=== PATIENT | female | born 1985 | race Caucasian/White ===

== ENCOUNTER → 2019-06-15 | Outpatient (CLI) | payer BC ==
--- NOTE | 2019-06-15 08:35 | US ---
EXAMINATION TYPE: US abdomen complete DATE OF EXAM: 06/15/2019 COMPARISON: NONE CLINICAL HISTORY: R 19.7 diarrhea indigestion. Symptoms x years; takes medication for Htn, elevated triglycerides, thyroid, Prilosec EXAM MEASUREMENTS: Liver Length: 20.4 cm Gallbladder Wall: 0.2 cm CBD: 0.3 cm Spleen: 12.5 cm Right Kidney: 12.8 x 5.9 x 5.0 cm Left Kidney: 12.0 x 5.9 x 5.6 cm Pancreas: homogeneous Liver: hyperechoic to right renal cortex suggests fatty liver , enlarged Gallbladder: wnl Evidence for sonographic Grimaldo's sign: no CBD: wnl Spleen: wnl Right Kidney: No hydronephrosis or masses seen Left Kidney: Hyperechoic focus without distal shadowing, possible 4 mm nonobstructing calculus. Upper IVC: wnl Abd Aorta: wnl IMPRESSION: 1. Sonographic findings most commonly related to hepatic steatosis. Correlate with liver function garland ts. 2. Possible 4 mm nonobstructing left renal calculus.
== END | disposition home or self-care (01) ==
LOC: RADUSWWP 07:08
PROVIDERS: ATTEND Surgery
DX: K30 Functional dyspepsia (principal); R19.7 Diarrhea, unspecified
CPT/HCPCS: 76700

== ENCOUNTER 2019-07-04 15:22 | Emergency (ER) | payer BC, OTHER ==
[2019-07-04 15:44] VITALS: BP 150/94; PULSE 83; RESP 20; TEMP 97.7
[2019-07-04] MEDS ORDERED: KETOROLAC 60 MG/2 ML VIAL IM STA (16:06)
[2019-07-04] MEDS ORDERED: CYCLOBENZAPRINE 10MG STARTER 3 TAB BTL PO STA (16:06)
--- NOTE | 2019-07-04 16:07 | ED ---
Fall HPI - General Chief Complaint: Fall Stated Complaint: IHS/fall Time Seen by Provider: 07/04/19 15:46 Source: patient Mode of arrival: ambulatory - History of Present Illness Initial Comments: 33-year-old female presents today for follow-up. Patient states that just prior to arrival she was at school when she tripped over a child falling onto her right side she states she fell in a stepwise pattern her knees and her elbow and then she hit the right side of her head. Patient denies any scalp hematomas bumps pain to palpation of the scalp. Patient denies loss of consciousness or blood thinners. Patient states she did have a slight headache this morning she states she is unsure if the headache she has right now is due to the one that she had previously with this is new. Patient denies any visual changes speech changes because of the upper or lower extremity sensation deficits or changes in gait. Patient denies any dizziness. Denied any immediate neck pain after the fall. Patient states she does feel sore all over. Patient denies any lumbar or thoracic pain. Patient denies any chest pain shortness of breath injury to the shoulders elbows wrists hips knees and ankles bilaterally. Patient denies any lacerations or abrasions. Upon arrival patient's Bisi Fisher she appears well there is no signs of acute distress. Patient was sent because this happened at work. - Related Data Home Medications Medication Instructions Recorded Confirmed Etonogestrel/Ethinyl Estradiol 1 ring VAGINAL DIRECTED 06/15/16 06/15/16 [Nuvaring Vaginal Ring] Fenofibrate [Lofibra] 160 mg PO DAILY 06/15/16 06/15/16 Levothyroxine Sodium [Synthroid] 50 mcg PO DAILY 06/15/16 06/15/16 Sulfamethox-Tmp 800-160Mg [Bactrim 1 tab PO Q12HR 06/15/16 06/15/16 DS 800-160 mg] Previous Rx's Medication Instructions Recorded Cyclobenzaprine [Flexeril] 10 mg PO TID PRN 7 Days #21 tab 07/04/19 Allergies Allergy/AdvReac Type Severity Reaction Status Date / Time Penicillins Allergy Rash/Hives Verified 07/04/19 15:45 sulfamethoxazole Allergy Rash/Hives Verified 06/15/19 11:17 [From Bactrim] trimethoprim [From Bactrim] Allergy Rash/Hives Verified 06/15/19 11:17 Review of Systems ROS Statement: Those systems with pertinent positive or pertinent negative responses have been documented in the HPI. ROS Other: All systems not noted in ROS Statement are negative. Past Medical History Past Medical History: Asthma History of Any Multi-Drug Resistant Organisms: None Reported Past Surgical History: No Surgical Hx Reported Past Psychological History: No Psychological Hx Reported Smoking Status: Never smoker Past Alcohol Use History: None Reported Past Drug Use History: None Reported General Exam - General Exam Comments Initial Comments: General: The patient is awake and alert, in no distress, and does not appear acutely ill. Eye: +3 mm pupils are equal, round and reactive to light, extra-ocular movements are intact. No APD. No nystagmus. There is normal conjunctiva bilaterally. No signs of icterus. Ears, nose, mouth and throat: There are moist mucous membranes and no oral lesions. No tenderness to palpation of the scalp there is no hematomas contusions abrasions or lacerations noted no raccoon or Livingston sign. Neck: The neck is supple, there is no tenderness or JVD. Patient has no midline tenderness to palpation of the cervical spine. Patient is very mild left-sided paraspinal tenderness patient is able to fully range without difficulty or limitation of the cervical spine. Patient states it feels tight the nose and the skin pain Cardiovascular: There is a regular rate and rhythm. No murmur, rub or gallop is appreciated. Respiratory: Lungs are clear to auscultation, respirations are non-labored, breath sounds are equal. No wheezes, stridor, rales, or rhonchi. Gastrointestinal: Soft, non-distended, non-tender abdomen without masses or organomegaly noted. There is no rebound or guarding present. Musculoskeletal: Normal ROM, no tenderness. Strength 5/5. Sensation intact. Pulses equal bilaterally 2+. Neurological: A&O x 3. CN II-XII intact, memory intact to immediately, inter mediate and [facility] recall. Able to follow simple verbal. Able to name a common object. High quality, labial (pa) and lingual (la) speech. Low quality posterior pharynx/larynx (ga) voice sounds. Able to express general knowledge. No hemineglect or inattention noted. Finger agnosia (-) and spatially oriented.Light touch sensation present over the face, chest, abdomen, back, UE bilaterally, and LE bilaterally. No visible bulk atrophy, hypertrophy, fasciculations, or myoclonus of the UE or LE b/l. Full PROM in UE and LE b/l. Bilateral muscle strength 5/5 for the following muscles: deltoid, biceps, triceps, brachioradialis, wrist extensors/flexor, hip flexor, hip abductors/adductors, hamstrings, quadriceps, feet dorsiflexors/plantar flexors. Finger to nose, finger to the examiners finger, and heel to blair coordinated and accurate b/l. Coordinated and even motions. Gait is coordinated and even in stride with tandem. Skin: Skin is warm and dry and no rashes or lesions are noted. Psychiatric: Cooperative, appropriate mood & affect, normal judgment. Limitations: no limitations Course Vital Signs 07/04/19 07/04/19 15:39 17:28 Temperature 97.7 F 97.7 F Pulse Rate 83 83 Respiratory 20 20 Rate Blood Pressure 150/94 150/94 O2 Sat by Pulse 98 98 Oximetry Medical Decision Making - Medical Decision Making 33yo female presents today for chief complaint of fall just prior to arrival. Patient did hit head, there was no loss of consciousness foll was from standing. Patient is not anticoagulation therapy patient has no scalp hematomas nor history of high injury impact. Patient had no immediate neck pain, no midline tenderness on exam, no complaints of pain ranging down the arms no paresthesias or weakness of the upper extremities. Patient is able to fully range of the cervical spine without limitations or difficulty. Patient has no focal neurological deficits. She complains of slight headache. Patient states this resolved with Toradol. Patient was provided Flexeril for muscle aches. I rechecked the patient is awake Tylenol and ibuprofen at home and follow-up with primary care provider and full concussion protocols. Return parameters were discussed at length as well as the importance the primary care follow-up was discussed. Patient provided work note for tomorrow and was discharged. discussed the case with Dr. Newton who is agreeable to Plan and discharged Patient was noted to have elevated blood pressure she denied any chest pain shortness of breath decreased urine output ripping tearing back pain severe headache and dizziness nausea or vomiting. Patient states that she is taking her blood pressure home and keeping a log she currently was started on a low- dose of lisinopril she states she continues to have elevated readings at home. I discussed the importance of following up with primary care provider to discuss that she continues to have elevated blood pressure readings patient verbalized understanding Disposition Clinical Impression: Fall, Headache, Concussion, Neck strain Disposition: HOME SELF-CARE Condition: Good Instructions (If sedation given, give patient instructions): Concussion (ED) Additional Instructions: Please use medication as discussed. Please follow-up with family doctor in the next 2 days, no exertional activity, no activities with increased risk of head injury, until PCP clearance- follow concussion protocols as discussed. Please return to emergency room if the symptoms increase or worsen or for any other concerns. Prescriptions: Cyclobenzaprine [Flexeril] 10 mg PO TID PRN 7 Days #21 tab PRN Reason: Muscle Spasm Is patient prescribed a controlled substance at d/c from ED?: No Referrals: Petrona Wylie MD [Primary Care Provider] - 1-2 days Time of Disposition: 16:47
== END 2019-07-04 17:28 | disposition home or self-care (01) ==
LOC: EC 15:22
DX: S06.0X0A Concussion without loss of consciousness, initial encounter (principal); S16.1XXA Strain of muscle, fascia and tendon at neck level, initial encounter; R03.0 Elevated blood-pressure reading, without diagnosis of hypertension; R26.9 Unspecified abnormalities of gait and mobility; Z79.890 Hormone replacement therapy; Z79.899 Other long term (current) drug therapy; Z88.0 Allergy status to penicillin; Z88.1 Allergy status to other antibiotic agents; Z88.2 Allergy status to sulfonamides; W01.10XA Fall on same level from slipping, tripping and stumbling with subsequent striking against unspecified object, initial encounter; Y92.219 Unspecified school as the place of occurrence of the external cause; Y99.0 Civilian activity done for income or pay
CPT/HCPCS: 96372; 99283; J1885

== ENCOUNTER → 2020-01-31 | Outpatient (CLI) | payer BC ==
--- NOTE | 2020-01-31 22:27 | CONS ---
CONSULTATION DATE OF SERVICE: Sleep apnea. 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 She carries a strong family history of mother, father and aunts, all of them have sleep apnea. She has gained considerable amount of weight in order of 90 pounds over the past 10 years and currently she is having issues with hypersomnia and sleepiness during the day. She snores. She wakes up frequently in the middle of the night. She cannot sleep on her back. She quits breathing. She has nocturia and she occasionally grinds her teeth and she is excessively fatigue and sleepy during the day. She goes to bed between 10 and 11 p.m. and wakes up at 6:30 a.m. in the morning. Feels tired all the time. Loveland score is at 8. No sleep paralysis. No hallucinations. No cataplexy. No intake of any caffeinated beverages. Does not drink alcohol in excess. She is a nose breather. She has some oral dryness when she wakes up in the morning. No nasal congestion or postnasal drainage. No nighttime chest pain or shortness of breath. No sleepwalking or sleep talking. No restlessness in lower extremities. No anxiety or depression. PAST MEDICAL HISTORY: Obesity, hypothyroidism, hyperlipidemia and hypertension. SURGICAL HISTORY: Negative. DRUG ALLERGIES: SULFA AND PENICILLINS. OUTPATIENT MEDICATIONS INCLUDE: Levothyroxine, fenofibrate, lisinopril, and metformin. SOCIAL HISTORY: Nonsmoker. No history of alcoholism. No history of IV drugs. FAMILY HISTORY: Positive for sleep apnea including mother, father and aunt. REVIEW OF SYSTEMS: Fourteen-point review of system was done. Positive findings are mentioned in history of present illness. PHYSICAL EXAMINATION: BP is 138/85, pulse 90, respirations 16, temperature 97.7, weight is 270, and height is 5 feet 5 inches. Loveland score is at 8. Neck size is 18 inches and saturation 97% on room air. General appearance: Calm, comfortable. Head is atraumatic, normocephalic. NECK: Supple. Mallampati class 4. Slight overbite. No goiter or neck masses. LUNGS: Clear to auscultation. HEART: Heart sounds are regular rate and rhythm. Normal S1, S2. No S3, S4. No murmurs. ABDOMEN: Soft, nontender. No organomegaly. EXTREMITIES: No edema. No cyanosis or clubbing. NEUROLOGIC: Awake and alert. There is no focal neurological deficits. IMPRESSION: 1. Hypersomnia, chronic with Loveland score of 8. 2. Loud snoring. 3. Obesity with a body weight of 270. 4. Hypothyroidism. 5. Hyperlipidemia. 6. Hypertension. PLAN: This patient carries a high clinical suspicion of obstructive sleep apnea. She is quite symptomatic and she is excessively somnolent and sleepy. Encourage weight loss. Implement good sleep hygiene measures. Proceed with a home sleep study to assess the patient for sleep apnea and treat accordingly. Continue treating her comorbidities which include hypothyroidism, hypertension, hyperlipidemia. We will continue to follow. MMODL / IJN: [id number] /
== END | disposition home or self-care (01) ==
LOC: SLEEP 16:01
PROVIDERS: ATTEND Internal Medicine Critical Care Medicine
DX: G47.10 Hypersomnia, unspecified (principal); E66.9 Obesity, unspecified; E03.9 Hypothyroidism, unspecified; E78.5 Hyperlipidemia, unspecified; I10 Essential (primary) hypertension; Z88.0 Allergy status to penicillin; Z88.2 Allergy status to sulfonamides
CPT/HCPCS: 99211

== ENCOUNTER → 2020-03-20 | Outpatient (CLI) | payer BC | END | disposition home or self-care (01) | LOC: LABWHC1 08:10 | PROVIDERS: ATTEND Anesthesiology | DX: Z20.828 Contact with and (suspected) exposure to other viral communicable diseases (principal) | CPT/HCPCS: U0003; C9803 ==

== ENCOUNTER → 2020-03-27 | Outpatient (CLI) | payer BC ==
--- NOTE | 2020-03-28 07:39 | MM ---
Reason for exam: screening (asymptomatic). Baseline mammogram. History: Family history of breast cancer in maternal aunt. Taking hormonal contraceptives for 15 years. Physical Findings: Nurse did not find any significant physical abnormalities on exam. MG 3D Screening Mammo W/Cad Bilateral CC and MLO view(s) were taken. There are scattered fibroglandular densities. There is no discrete abnormality. These results were verbally communicated with the patient and result sheet given to the patient on 03/27/20. ASSESSMENT: Negative, BI-RAD 1 RECOMMENDATION: Routine screening mammogram of both breasts at age 38. (unless clinical indication to start sooner)
== END | disposition home or self-care (01) ==
LOC: RADMAMWWP 14:33
PROVIDERS: ATTEND Obstetrics & Gynecology
DX: Z12.31 Encounter for screening mammogram for malignant neoplasm of breast (principal)
CPT/HCPCS: 77063; 77067

== ENCOUNTER → 2020-06-05 | Outpatient (CLI) | payer BC ==
--- NOTE | 2020-06-05 18:57 | PN ---
PROGRESS NOTE This is a 34-year-old female patient with a diagnosis of moderate to severe obstructive sleep apnea with an AHI of 28, and the patient is coming in for a compliancy check. She is currently on APAP, minimum pressure of 5, maximum pressure of 15. She reports some limited benefit. At times she is not seeing any benefit at all. However, based on the compliance data, she has been averaging around 6.9 hours of CPAP use per night and she is utilizing her CPAP more than 4 hours more than 90% of the time. Her average pressure delivered by the machine is 14.9 cm of water. Her leak is at 37 L/minute and her AHI is down to 0.8, indicating adequate use and adequate compliancy. Her weight has been stable. She is trying to lose weight. No major nighttime chest pain, shortness of breath, heartburn or palpitation. Her current Titus score is 2. PHYSICAL EXAMINATION: BP is 138/83, pulse 85, respirations 12, temperature is 98.2. Saturation is 95% on room air. Weight is 276. GENERAL APPEARANCE: Obese, calm, comfortable. HEAD: Atraumatic, normocephalic. NECK: Supple. No JVD. No goiter or neck masses. LUNGS: Clear to auscultation. HEART: Heart sounds are regular rate and rhythm. Normal S1, S2. No S3, S4. No murmurs. ABDOMEN: Soft, nontender. No organomegaly. EXTREMITIES: No edema. No cyanosis or clubbing. NEUROLOGIC: Awake and alert. There is no focal neurological deficit. PSYCHIATRIC: Negative for anxiety or depression. IMPRESSION: 1. Symptomatic obstructive sleep apnea, AHI of 28, currently on APAP. 2. Hypersomnia. Titus score is down to 2. 3. Obesity. Weight is stable with a BMI of 44.9. PLAN: 1. Continue CPAP therapy at the same level of pressure. 2. On today's evaluation, I offered two alternative masks, a DreamWear [id number], small size, and an AirFit N20 nose mask. Both of these masks will be tried out and feedback will be given to me at a later stage. Encourage weight loss. Implement good sleep hygiene measures. Continue CPAP therapy at same level of pressure. See me back in a year's time. MMODL / IJN: [id number] /
== END | disposition home or self-care (01) ==
LOC: SLEEP 15:48
PROVIDERS: ATTEND Internal Medicine Critical Care Medicine
DX: G47.33 Obstructive sleep apnea (adult) (pediatric) (principal); G47.10 Hypersomnia, unspecified; E66.9 Obesity, unspecified; Z68.41 Body mass index [BMI] 40.0-44.9, adult

== ENCOUNTER → 2020-12-20 | Outpatient (CLI) | payer BC ==
[2020-12-20 22:26] LABS: Hemoglobin A1C 5.3 % (4.0-6.0)
== END | disposition home or self-care (01) ==
LOC: LABWHC1 13:41
PROVIDERS: ATTEND Physician Assistant Medical
DX: R73.03 Prediabetes (principal)
CPT/HCPCS: 36415; 83036

== ENCOUNTER → 2021-04-12 | Outpatient (CLI) | payer BC ==
--- NOTE | 2021-04-16 12:05 | MM ---
Reason for exam: screening (asymptomatic). Last mammogram was performed 1 year and 1 month ago. History: Family history of breast cancer in maternal aunt. Taking hormonal contraceptives for 15 years. Physical Findings: A clinical breast exam by your physician is recommended on an annual basis and results should be correlated with mammographic findings. MG 3D Screening Mammo W/Cad Bilateral CC and MLO view(s) were taken. Prior study comparison: March 27, 2020, bilateral MG 3d screening mammo w/cad. There are scattered fibroglandular densities. No significant changes when compared with prior studies. ASSESSMENT: Negative, BI-RAD 1 RECOMMENDATION: Routine screening mammogram of both breasts at age 38.
== END | disposition home or self-care (01) ==
LOC: RADMAMWWP 16:08
PROVIDERS: ATTEND Family Medicine
DX: Z12.31 Encounter for screening mammogram for malignant neoplasm of breast (principal); Z80.3 Family history of malignant neoplasm of breast
CPT/HCPCS: 77063; 77067

== ENCOUNTER → 2021-06-11 | Outpatient (CLI) | payer BC ==
[2021-06-11 18:32] LABS: Basophils # (A) 0.03 X 10*3/uL (0.00-0.10); Basophils % (A) 0.6 %; Eosinophils # (A) 0.18 X 10*3/uL (0.04-0.35); Eosinophils % (A) 3.5 %; HCT 34.4 % (37.2-46.3); HGB 11.1 g/dL (12.0-15.0); Immature Grans, Automated 0.4 %; Lymphocytes # (A) 1.72 X 10*3/uL (0.90-5.00); Lymphocytes % (A) 33.8 %; MCH 27.2 pg (27.0-32.0); MCHC 32.3 g/dL (32.0-37.0); MCV 84.3 fL (80.0-97.0); Mean Platelet Volume 10.8 fL (9.5-12.2); Monocytes # (A) 0.42 X 10*3/uL (0.20-1.00); Monocytes % (A) 8.3 %; NRBC Per 100 WBC 0 /100 WBCS (0.0-0.0); Neutrophils # (A) 2.72 X 10*3/uL (1.80-7.70); Neutrophils % (A) 53.4 %; Platelet Count 319 X 10*3/uL (140-440); RBC 4.08 X 10*6/uL (4.10-5.20); RDW 13.2 % (11.5-14.5); WBC 5.09 X 10*3/uL (4.50-10.00)
[2021-06-11 20:26] LABS: ALT 15 U/L (8-44); AST 18 U/L (13-35); African American GFR (CKD) 136.4 (60.0-200.0); Albumin 4.2 g/dL (3.8-4.9); Albumin/Globulin Ratio 1.69 (1.60-3.17); Alkaline Phosphatase 45 U/L (41-126); BUN/Creat Ratio 20.65 Ratio (12.00-20.00); Calcium 9.1 mg/dL (8.7-10.3); Carbon Dioxide 18.8 mmol/L (20.0-27.5); Chloride 108 mmol/L (96-109); Chol/HDL Ratio 3.95 Ratio; Globulin 2.5 g/dL (1.6-3.3); Glucose 86 mg/dL (70-110); LDL Cholesterol,Calculated 29.8 mg/dL (0.0-131.0); Non-African American GFR(CKD) 117.7 (60.0-200.0); Potassium 3.8 mmol/L (3.5-5.5); Sodium 142 mmol/L (135-145); Total Protein 6.6 g/dL (6.2-8.2)
== END | disposition home or self-care (01) ==
LOC: LABWHC1 11:38
PROVIDERS: ATTEND Family Medicine
DX: E03.9 Hypothyroidism, unspecified (principal); I10 Essential (primary) hypertension; E78.1 Pure hyperglyceridemia
CPT/HCPCS: 36415; 80053; 80061; 82043; 82570; 83036; 84443; 85025

== ENCOUNTER → 2022-12-19 | Outpatient (CLI) | payer BC ==
--- NOTE | 2022-12-22 20:31 | MM ---
Reason for Exam: Screening (asymptomatic). Last mammogram was performed 1 year(s) and 8 month(s) ago. Patient History: Menarche at age 11. Patient has no children. Currently using Hormonal Contraceptives, for 15 years. Maternal aunt had breast cancer, age 50. Mother had breast cancer, left, age 61. Mother had breast cancer, right, age 61. Mother tested for BRCA1 outcome was negative. Mother tested for BRCA2 outcome was negative. Last menstrual period: 12/04/2022 Risk Values: Pati 5 year model risk: 1.0%. NCI Lifetime model risk: 18.9%. Prior Study Comparison: 03/27/2020 Bilateral Screening Mammogram, [facility]. 04/12/2021 Bilateral Screening Mammogram, [facility]. Tissue Density: There are scattered fibroglandular densities. Findings: Analyzed By CAD. There is no suspicious group of microcalcifications or new suspicious mass in either breast. Overall Assessment: Negative, BI-RAD 1 Management: Screening Mammogram of both breasts in 1 year. . Patient should continue monthly self-breast exams. A clinical breast exam by your physician is recommended on an annual basis. This exam should not preclude additional follow-up of suspicious palpable abnormalities. Note on Pati scores and lifetime risk: 1. A Pati score greater than 3% is considered moderate risk. If this is the case, consider specialist referral to assess eligibility for a risk reducing agent. 2. If overall lifetime risk for the development of breast cancer is 20% or higher, the patient may qualify for future screening with alternating mammogram and breast MRI. Electronically signed and approved by: Art Hdez M.D. Radiologist
== END | disposition home or self-care (01) ==
LOC: RADMAMWWP 15:22
PROVIDERS: ATTEND Family Medicine
DX: Z12.31 Encounter for screening mammogram for malignant neoplasm of breast (principal); Z80.3 Family history of malignant neoplasm of breast
CPT/HCPCS: 77063; 77067

== ENCOUNTER → 2022-12-26 | Outpatient (CLI) | payer BC ==
--- NOTE | 2022-12-27 05:52 | XR ---
EXAMINATION TYPE: XR cervical spine 5 views comp DATE OF EXAM: 12/26/2022 COMPARISON: None HISTORY: 37-year-old female M99.01, M54.10. TECHNIQUE: 5 views FINDINGS: There is straightening of the normal cervical lordosis both preserved alignment of the cervicothoraci c junction is obscured by the patient's shoulders and not assessed. No predental space widening or pr evertebral soft tissue swelling. Disc interspaces are maintained. Normal odontoid view. No bony neuro foraminal narrowing seen on either side. IMPRESSION: The cervicothoracic junction is obscured by the patient's shoulders and not assessed. Otherwise, no ining alignment is maintained. Aside from some straightening of the normal cervical lordosis which ma y be positional or due to muscle spasm, no specific abnormality seen.
== END | disposition home or self-care (01) ==
LOC: RADXRMAIN 16:45
PROVIDERS: ATTEND Chiropractor
DX: M99.01 Segmental and somatic dysfunction of cervical region (principal); M54.12 Radiculopathy, cervical region
CPT/HCPCS: 72050

== ENCOUNTER → 2023-05-20 | Outpatient (CLI) | payer BC ==
[2023-05-20 15:18] LABS: T4, Free (Free Thyroxine) 1.09 ng/dL (0.80-1.80)
== END | disposition home or self-care (01) ==
LOC: LABWHC1 08:42
DX: O99.282 Endocrine, nutritional and metabolic diseases complicating pregnancy, second trimester (principal); Z3A.00 Weeks of gestation of pregnancy not specified; E03.9 Hypothyroidism, unspecified
CPT/HCPCS: 36415; 84439; 84443

== ENCOUNTER → 2023-06-26 | Outpatient (CLI) | payer BC ==
[2023-06-26 15:07] LABS: HCT 30.3 % (37.2-46.3); HGB 10.1 g/dL (12.0-15.0); MCH 27.8 pg (27.0-32.0); MCHC 33.3 g/dL (32.0-37.0); MCV 83.5 FL (80.0-97.0); Mean Platelet Volume 10.5 FL (9.5-12.2); NRBC Per 100 WBC 0 X 10*3/uL (0.00-0.01); Platelet Count 177 X 10*3/uL (140-440); RBC 3.63 X 10*6/uL (4.10-5.20); RDW 14.1 % (11.5-14.5); WBC 5.91 X 10*3/uL (4.50-10.00)
== END | disposition home or self-care (01) ==
LOC: LABWHC1 09:46
PROVIDERS: ATTEND Obstetrics & Gynecology
DX: Z34.90 Encounter for supervision of normal pregnancy, unspecified, unspecified trimester (principal); Z3A.00 Weeks of gestation of pregnancy not specified
CPT/HCPCS: 36415; 82950; 85027

== ENCOUNTER 2023-07-07 14:16 | Outpatient (CLI) | payer BC ==
[2023-07-07 16:26] LABS: Creatinine,Urine Random 99.1 mg/dL; Protein/Creatinine Ratio,Urine 0.161
[2023-07-07 16:28] LABS: Basophils % (A) 0 %; Eosinophils # (A) 0.1 k/uL (0-0.7); Eosinophils % (A) 1 %; HCT 30.6 % (34.0-46.0); HGB 10.6 gm/dL (11.4-16.0); Lymphocytes # (A) 1.5 k/uL (1.0-4.8); Lymphocytes % (A) 23 %; MCH 29.7 pg (25.0-35.0); MCHC 34.7 g/dL (31.0-37.0); MCV 85.6 fL (80.0-100.0); Mean Platelet Volume 8.1; Monocytes # (A) 0.3 k/uL (0-1.0); Monocytes % (A) 4 %; Neutrophils # (A) 4.6 k/uL (1.3-7.7); Neutrophils % (A) 70 %; Platelet Count 173 k/uL (150-450); RBC 3.57 m/uL (3.80-5.40); RDW 14.3 % (11.5-15.5); WBC 6.6 k/uL (3.8-10.6)
[2023-07-07 16:28] LABS: Appearance,Urine Cloudy (Clear); Bacteria,Urine Rare /hpf; Bilirubin,Urine Negative (Negative); Blood,Urine Negative (Negative); Color,Urine Light Yellow; Glucose,Urine (UA) Negative (Negative); Ketones,Urine Negative (Negative); Leukocyte Esterase,Urine Negative (Negative); Mucus,Urine Rare /hpf; Nitrite,Urine Negative (Negative); Protein,Urine Trace (Negative); RBC,Urine 3 /hpf (0-5); Specific Gravity,Urine 1.027 (1.001-1.035); Squamous Epithelial Cell,Urine 4 /hpf (0-4); Urobilinogen,Urine <2.0 mg/dL (<2.0); WBC,Urine 1 /hpf (0-5)
[2023-07-07 16:49] LABS: ALT 20 U/L (4-34); AST 27 U/L (14-36); African American GFR (CKD) >90 (>60 ml/min/1.73 sqM); Blood Urea Nitrogen 11 mg/dL (7-17); LDH 208 U/L (120-246); Non-African American GFR(CKD) >90 (>60 ml/min/1.73 sqM); Uric Acid 2.5 mg/dL (3.7-7.4)
[2023-07-07 19:37] VITALS: BP 157/72; PULSE 85; RESP 18; TEMP 97.7
--- NOTE | 2023-07-13 21:02 | P.MSEPDOC ---
Presenting Problems - Arrival Data Date of Arrival on Unit: 07/07/23 Time of Arrival on Unit: 14:16 Mode of Transport: Ambulatory - Complaint OB-Reason for Admission/Chief Complaint: PIH Comment: Pt reporting to triage with c/o high blood pressure reading while at work. Medical History - Information : 1 Para: 0 Term: 0 : 0 Abortions: Spontaneous or Elective: 0 Number of Living Children: 0 - Gestational Age Gestational Age by ANNETTE (wks/days): 27 Weeks and 3 Days Review of Systems - Review of Systems Constitutional: No problems Breast: No problems ENT: No problems Cardiovascular: No problems Respiratory: No problems Gastrointestinal: No problems Genitourinary: No problems Musculoskeletal: No problems Neurological: No problems Skin: No problems Vital Signs - Temperature Temperature: 97.7 F Temperature Source: Temporal Artery Scan - Pulse Pulse Oximetery Pulse Rate: 85 Pulse Assessment Method: Pulse Oximetry - Respirations Respiratory Rate: 18 Oxygen Delivery Method: Room Air O2 Sat by Pulse Oximetry: 98 - Blood Pressure Right Arm Blood Pressure: 157/72 Blood Pressure Mean: 100 Blood Pressure Source: Automatic Cuff Medical Screen Scoring - Assessment - Baby A Baseline FHR: 140 Heart Rate - NICHD Category: Category I (Normal) Physician Notification - Physician Notified Physician Notified Date: 07/07/23 Physician Notified Time: 16:58 Physician: Chayo Lowry New Order Received: Yes (home with follow up instructions.) Maternal Triage Index - Maternal Triage Index Presenting for scheduled procedure w/no complaint: No - Stat/Priority 1 Stat Priority 1: Yes Provider Notified: Chayo Lowry Provider Notified Time: 15:30 Criteria Met for Priority 1: Pt reports to [facility] with bp readings of 172/92,162/96,and 162/78 while at work today. Denies symptoms. Disposition - Disposition OB Disposition: Discharge to home Discharge Date: 07/07/23 Discharge Time: 17:00 I agree with the RN Medical Screening Exam: Yes Physician's MSE Comment: I have neither seen nor examined the patient Case reviewed; plan agreed upon as documented in EMR&OBIX.: Yes Diagnosis: GESTATIONAL HTN W/O SIGNIFICANT PROTEINURIA, THIRD TRIMESTER
== END 2023-07-07 17:05 | disposition home or self-care (01) ==
LOC: FBPOP 14:16
PROVIDERS: ATTEND Obstetrics & Gynecology
DX: O13.2 Gestational [pregnancy-induced] hypertension without significant proteinuria, second trimester (principal); Z3A.27 27 weeks gestation of pregnancy; Z88.0 Allergy status to penicillin; Z88.2 Allergy status to sulfonamides; Z91.048 Other nonmedicinal substance allergy status; Z79.84 Long term (current) use of oral hypoglycemic drugs
CPT/HCPCS: 81001; 82565; 82570; 83615; 84156; 84450; 84460; 84520; 84550; 85025; 99213; 99215

== ENCOUNTER → 2023-07-24 | Outpatient (CLI) | payer BC ==
[2023-07-24 12:33] LABS: ALT 21 U/L (4-34); AST 22 U/L (14-36); African American GFR (CKD) >90 (>60 ml/min/1.73 sqM); Albumin 3.5 g/dL (3.5-5.0); Albumin/Globulin Ratio 1.3; Alkaline Phosphatase 65 U/L (38-126); Anion Gap 9 mmol/L; Blood Urea Nitrogen 8 mg/dL (7-17); Carbon Dioxide 20 mmol/L (22-30); Chloride 108 mmol/L (98-107); Globulin 2.7 g/dL; Glucose 95 mg/dL (74-99); Non-African American GFR(CKD) >90 (>60 ml/min/1.73 sqM); Potassium 3.9 mmol/L (3.5-5.1); Sodium 137 mmol/L (137-145); Total Bilirubin 0.3 mg/dL (0.2-1.3); Total Protein 6.2 g/dL (6.3-8.2)
[2023-07-24 16:46] LABS: Glucose 3 Hour, Gest 79 mg/dL
[2023-07-24 17:06] LABS: Basophils # (A) 0.03 X 10*3/uL (0.00-0.10); Basophils % (A) 0.5 %; Eosinophils # (A) 0.14 X 10*3/uL (0.04-0.35); Eosinophils % (A) 2.3 %; HCT 32.2 % (37.2-46.3); HGB 10.7 g/dL (12.0-15.0); Lymphocytes # (A) 1.43 X 10*3/uL (0.90-5.00); Lymphocytes % (A) 23.2 %; MCH 27.9 pg (27.0-32.0); MCHC 33.2 g/dL (32.0-37.0); MCV 84.1 FL (80.0-97.0); Mean Platelet Volume 10.7 FL (9.5-12.2); Monocytes # (A) 0.48 X 10*3/uL (0.20-1.00); Monocytes % (A) 7.8 %; NRBC Per 100 WBC 0 X 10*3/uL (0.00-0.01); Neutrophils # (A) 4.06 X 10*3/uL (1.80-7.70); Neutrophils % (A) 65.7 %; Platelet Count 175 X 10*3/uL (140-440); RBC 3.83 X 10*6/uL (4.10-5.20); RDW 13.9 % (11.5-14.5); WBC 6.17 X 10*3/uL (4.50-10.00)
[2023-07-24 18:15] LABS: Chol/HDL Ratio 3.78 Ratio; LDL Cholesterol,Calculated 108.8 mg/dL (0.0-131.0)
== END | disposition home or self-care (01) ==
LOC: LABWHC1 10:41
PROVIDERS: ATTEND Obstetrics & Gynecology
DX: I10 Essential (primary) hypertension (principal); E03.9 Hypothyroidism, unspecified; E55.9 Vitamin D deficiency, unspecified; E78.5 Hyperlipidemia, unspecified; R73.03 Prediabetes
CPT/HCPCS: 36415; 80053; 80061; 82306; 82607; 82951; 82952; 83036; 84207; 84443; 85025

== ENCOUNTER → 2023-09-09 | Outpatient (CLI) | payer BC ==
[2023-09-09 19:23] LABS: T4, Free (Free Thyroxine) 1.06 ng/dL (0.80-1.80)
== END | disposition home or self-care (01) ==
LOC: LABWHC1 14:27
PROVIDERS: ATTEND Obstetrics & Gynecology
DX: O24.410 Gestational diabetes mellitus in pregnancy, diet controlled (principal); Z3A.00 Weeks of gestation of pregnancy not specified
CPT/HCPCS: 36415; 83036; 84439; 84443; 86762

== ENCOUNTER 2023-09-11 16:18 | Outpatient (CLI) | payer BC ==
[2023-09-11 17:08] LABS: Appearance,Urine Cloudy (Clear); Bacteria,Urine Rare /hpf; Bilirubin,Urine Negative (Negative); Blood,Urine Negative (Negative); Color,Urine Yellow; Glucose,Urine (UA) Negative (Negative); Ketones,Urine Negative (Negative); Leukocyte Esterase,Urine Trace (Negative); Mucus,Urine Rare /hpf; Nitrite,Urine Negative (Negative); Protein,Urine 2+ (Negative); RBC,Urine 1 /hpf (0-5); Specific Gravity,Urine 1.027 (1.001-1.035); Squamous Epithelial Cell,Urine 6 /hpf (0-4); Urobilinogen,Urine <2.0 mg/dL (<2.0); WBC,Urine 4 /hpf (0-5)
[2023-09-11 17:19] LABS: Protein/Creatinine Ratio,Urine 0.553
[2023-09-11 17:58] LABS: Basophils % (A) 0 %; Eosinophils # (A) 0.1 k/uL (0-0.7); Eosinophils % (A) 2 %; HCT 33.2 % (34.0-46.0); HGB 11.5 gm/dL (11.4-16.0); Lymphocytes # (A) 1.8 k/uL (1.0-4.8); Lymphocytes % (A) 25 %; MCHC 34.8 g/dL (31.0-37.0); MCV 83.5 fL (80.0-100.0); Mean Platelet Volume 8.7; Monocytes # (A) 0.4 k/uL (0-1.0); Monocytes % (A) 5 %; Neutrophils # (A) 4.9 k/uL (1.3-7.7); Neutrophils % (A) 66 %; Platelet Count 213 k/uL (150-450); RBC 3.97 m/uL (3.80-5.40); WBC 7.3 k/uL (3.8-10.6)
[2023-09-11 18:06] LABS: ALT 22 U/L (4-34); AST 25 U/L (14-36); African American GFR (CKD) >90 (>60 ml/min/1.73 sqM); Blood Urea Nitrogen 11 mg/dL (7-17); LDH 182 U/L (120-246); Non-African American GFR(CKD) >90 (>60 ml/min/1.73 sqM); Uric Acid 3.7 mg/dL (3.7-7.4)
[2023-09-11 18:08] LABS: INR 0.8 (<1.2); Prothrombin Time 9.5 sec (10.0-12.5)
== END 2023-09-11 18:59 | disposition home or self-care (01) ==
LOC: FBPOP 16:18
PROVIDERS: ATTEND Obstetrics & Gynecology Obstetrics
DX: O13.9 Gestational [pregnancy-induced] hypertension without significant proteinuria, unspecified trimester (principal); Z3A.00 Weeks of gestation of pregnancy not specified; Z88.0 Allergy status to penicillin; Z88.2 Allergy status to sulfonamides; Z88.1 Allergy status to other antibiotic agents
CPT/HCPCS: 59025; 81001; 82565; 82570; 83615; 84156; 84450; 84460; 84520; 84550; 85025; 85384; 85610; 85730; 99215

== ENCOUNTER → 2024-01-08 | Outpatient (CLI) | payer BC ==
--- NOTE | 2024-01-08 15:59 | XR ---
EXAMINATION TYPE: XR lumbosacral spine min 4V DATE OF EXAM: 01/08/2024 3:48 PM CLINICAL INDICATION: Female, 38 years old with history of M461 SACROILITIS; PHH COMPARISON: None TECHNIQUE: XR lumbosacral spine min 4V - Frontal, lateral , bilateral oblique and coned in L5-S1 late ral views of the spine. FINDINGS: No evidence of any acute osseous pathology. No evidence of loss of vertebral body height i s seen. There is normal alignment of the lumbar vertebral bodies. Minimal degeneration of the spine w ith small osteophytes and facet joint arthropathy. The sacroiliac joints demonstrate minimal osteophy te formation. IMPRESSION: 1. No acute fracture. 2. Minimal degeneration to the spine and sacroiliac joints.
== END | disposition home or self-care (01) ==
LOC: RADXRMAIN 15:30
PROVIDERS: ATTEND Nurse Practitioner Family
DX: M46.1 Sacroiliitis, not elsewhere classified
CPT/HCPCS: 72110

== ENCOUNTER → 2024-01-27 | Outpatient (CLI) | payer BC ==
--- NOTE | 2024-02-01 11:23 | MM ---
Reason for Exam: Screening (asymptomatic). Last mammogram was performed 1 year(s) and 1 month(s) ago. Patient History: Menarche at age 11. First Full-Term at age 38. Late child-bearing (after 30). Patient has history of breast feeding. Currently using Hormonal Contraceptives, for 15 years. Maternal aunt had breast cancer, age 50. Mother had breast cancer, left, age 61. Mother had breast cancer, right, age 61. Mother tested for BRCA1 outcome was negative. Mother tested for BRCA2 outcome was negative. Risk Values: Pati 5 year model risk: 1.1%. NCI Lifetime model risk: 19.3%. Prior Study Comparison: 03/27/2020 Bilateral Screening Mammogram, [facility]. 04/12/2021 Bilateral Screening Mammogram, [facility]. 12/19/2022 Bilateral MG 3D screening mammo w/cad, [facility]. Tissue Density: The breasts are heterogeneously dense, which may obscure small masses. Findings: Analyzed By CAD. Right breast: There is no suspicious group of microcalcifications or new suspicious mass. Left breast: New asymmetry left upper outer aspect anterior/middle depth. Poss related to breast feeding. Overall Assessment: Incomplete: need additional imaging evaluation, BI-RAD 0 Management: Diagnostic Mammogram of the left breast. [facility] will attempt to contact patient to return for supplemental views and ultrasound if indicated. Patient should continue monthly self-breast exams. A clinical breast exam by your physician is recommended on an annual basis. This exam should not preclude additional follow-up of suspicious palpable abnormalities. Note on Pati scores and lifetime risk: 1. A Pati score greater than 3% is considered moderate risk. If this is the case, consider specialist referral to assess eligibility for a risk reducing agent. 2. If overall lifetime risk for the development of breast cancer is 20% or higher, the patient may qualify for future screening with alternating mammogram and breast MRI. [facility], , 02/01/2024 11:20 AM. Electronically signed and approved by: Soto Parish DO
== END | disposition home or self-care (01) ==
LOC: RADMAMWWP 15:09
PROVIDERS: ATTEND Family Medicine
CPT/HCPCS: 77063; 77067

== ENCOUNTER → 2024-02-10 | Outpatient (CLI) | payer BC ==
--- NOTE | 2024-02-10 14:25 | MM ---
Reason for Exam: Additional evaluation requested from abnormal screening. Last screening mammogram was performed less than 1 month ago. Patient History: Menarche at age 11. First Full-Term at age 38. Late child-bearing (after 28). Patient has history of breast feeding. Currently using Hormonal Contraceptives, for 15 years. Maternal aunt had breast cancer, age 50. Mother had breast cancer, left, age 61. Mother had breast cancer, right, age 61. Mother tested for BRCA1 outcome was negative. Mother tested for BRCA2 outcome was negative. Risk Values: Pati 5 year model risk: 1.1%. NCI Lifetime model risk: 19.3%. Prior Study Comparison: 04/12/2021 Bilateral Screening Mammogram, [facility]. 12/19/2022 Bilateral MG 3D screening mammo w/cad, [facility]. 01/27/2024 Bilateral MG 3D screening mammo w/cad, [facility]. Tissue Density: Left: The breasts are heterogeneously dense, which may obscure small masses. Findings: Analyzed By CAD. Prominent ducts are noted without evidence for distinct mass. No suspicious calcifications. Overall Assessment: Benign, BI-RAD 2 Management: Screening Mammogram of both breasts in 1 year. . Results were given to the patient verbally at the time of exam. Patient should continue monthly self-breast exams. A clinical breast exam by your physician is recommended on an annual basis. This exam should not preclude additional follow-up of suspicious palpable abnormalities. Note on Pati scores and lifetime risk: 1. A Pati score greater than 3% is considered moderate risk. If this is the case, consider specialist referral to assess eligibility for a risk reducing agent. 2. If overall lifetime risk for the development of breast cancer is 20% or higher, the patient may qualify for future screening with alternating mammogram and breast MRI. [facility], , 02/10/2024 2:22 PM. Electronically signed and approved by: Sea Sutton M.D. Radiologis
== END | disposition home or self-care (01) ==
LOC: RADMAMWWP 13:41
PROVIDERS: ATTEND Family Medicine
CPT/HCPCS: 77061; 77065